=== PATIENT | female | born 1995 | race Caucasian/White ===

== ENCOUNTER 2017-08-09 20:12 | Emergency (ER) | payer OTHER ==
[2017-08-09] MEDS ORDERED: Ondansetron ODT TAB* 4 MG PO ONE (21:29)
--- NOTE | 2017-08-09 21:29 | ED ---
Head Injury - HPI Summary HPI Summary: 21 female presents with head injury today. She states she stood up and hit her head on a bar. She denies any loss consciousness. She denies any vomiting but admits to nausea. She admits to some dizziness. She denies any change in vision. States she took some Tylenol which normally takes for headaches but it did not relieve her headache. She has history of migraines. She does have a history of concussions. She states her pain is greatest on the posterior aspect of her head where she struck her head. She denies any neck pain. She denies any other injury. She denies any difficulties concentrating. She also states that she noticed a rash on her left forearm today. States area has been spreading. She denies any fevers. She denies any history of MRSA. She denies any injury to the area. She has full range of motion of her wrist. - History Of Current Complaint Chief Complaint: EDHeadInjury Stated Complaint: HEAD INJURY Time Seen by Provider: 08/09/17 20:26 Hx Last Menstrual Period: 12/20/14 Pain Intensity: 3 - Allergies/Home Medications Allergies/Adverse Reactions: Allergies Allergy/AdvReac Type Severity Reaction Status Date / Time No Known Allergies Allergy Verified 01/06/15 11:25 PMH/Surg Hx/FS Hx/Imm Hx Endocrine/Hematology History: Denies: Hx Diabetes, Hx Thyroid Disease Cardiovascular History: Denies: Hx Hypertension Respiratory History: Reports: Hx Asthma - ACTIVITY INDUCED Denies: Hx Chronic Obstructive Pulmonary Disease (COPD) GI History: Denies: Hx Ulcer Neurological History: Reports: Hx Migraine - Surgical History Surgery Procedure, Year, and Place: DOUBLE HERNIA- 2-3 YEARS OF AGE Infectious Disease History: No Infectious Disease History: Denies: Hx Hepatitis, Hx Human Immunodeficiency Virus (HIV), Traveled Outside the [place] in Last 30 Days - Family History Known Family History: Negative: Seizure Disorder - Social History Alcohol Use: Occasionally Substance Use Type: Reports: None Smoking Status (MU): Never Smoked Tobacco Review of Systems Negative: Fever Negative: Chest Pain Negative: Shortness Of Breath Positive: Nausea. Negative: Vomiting Positive: Rash Positive: Headache All Other Systems Reviewed And Are Negative: Yes Physical Exam Triage Information Reviewed: Yes Vital Signs On Initial Exam: Initial Vitals Temp Pulse Resp BP Pulse Ox 98.5 F 78 16 123/67 100 08/09/17 20:14 08/09/17 20:14 08/09/17 20:14 08/09/17 20:14 08/09/17 20:14 Vital Signs Reviewed: Yes Appearance: Positive: Well-Appearing Skin: Positive: Warm, Dry, Other - Erythematous rash 4cm by 3 cm of left forearm that is warm to touch Head/Face: Positive: Normal Head/Face Inspection. Negative: Other - No step off , raccoon eyes, cerna sign Eyes: Positive: Normal, EOMI, OSCAR, Conjunctiva Clear ENT: Positive: Normal ENT inspection, Pharynx normal, TMs normal Neck: Positive: Other: - Nontender neck Respiratory/Lung Sounds: Positive: Clear to Auscultation, Breath Sounds Present Cardiovascular: Positive: Normal, RRR Abdomen Description: Positive: Nontender, Soft Bowel Sounds: Positive: Present Musculoskeletal: Positive: Strength/ROM Intact - Left wrist, Other - good Pulses Neurological: Positive: Sensory/Motor Intact, Alert, Oriented to Person Place, Time, CN Intact II-III Psychiatric: Positive: Normal - Lebron Coma Scale Best Eye Response: 4 - Spontaneous Best Motor Response: 6 - Obeys Commands Best Verbal Response: 5 - Oriented Coma Scale Total: 15 Diagnostics - Vital Signs Vital Signs Temp Pulse Resp BP Pulse Ox 08/09/17 20:14 98.5 F 78 16 123/67 100 - Laboratory Lab Statement: Any lab studies that have been ordered have been reviewed, and results considered in the medical decision making process. Head Injury Course/Dx Course Of Treatment: 21 female presents with head injury today. She states she stood up and hit her head on a bar. She denies any loss consciousness. She denies any vomiting but admits to nausea. She admits to some dizziness. She denies any change in vision. States she took some Tylenol which normally takes for headaches but it did not relieve her headache. She has history of migraines. She does have a history of concussions. She states her pain is greatest on the posterior aspect of her head where she struck her head. She denies any neck pain. She denies any other injury. She denies any difficulties concentrating. She also states that she noticed a rash on her left forearm today. States area has been spreading. She denies any fevers. She denies any history of MRSA. She denies any injury to the area. She has full range of motion of her wrist. On exam normal neuro exam. According to [place] rules does not need any head imaging at this time. Warned if develop persistent vomiting to return to ED. Rash could be a cellulitis so advised that if continues to spread tomorrow to start antibiotics. Told to follow up with Michael about head injury. Gave nausea medication. Patient understands agrees with plan. - Diagnoses Differential Diagnosis/HQI/PQRI: Concussion Without LOC, Contusion, Intracranial Bleed Provider Diagnoses: Head injury, Rash Discharge - Sign-Out/Discharge Documenting (check all that apply): Discharge/Admit/Transfer - Discharge Plan Condition: Good Disposition: HOME Prescriptions: Cephalexin CAP* [Keflex CAP*] 500 mg PO BID #14 cap Ondansetron ODT TAB* [Zofran 4 MG Odt TAB*] 4 mg PO Q6H PRN #12 tab.odt PRN Reason: Nausea Patient Education Materials: Head Injury (ED) Referrals: [facility] - Michael BAILEY [Primary Care Provider] - Additional Instructions: Place ice on area as needed Take Tylenol or ibuprofen for headache every 6 hours take zofran every 6 hours as need for nausea Modify activities as tolerated Follow up with primary within 5 days if rash still present tomorrow start antibiotic twice a day for 7 days Return to ED if develop persistent vomiting, severe headache, change in behavior , or any new or worsening symptoms - Billing Disposition and Condition Condition: GOOD Disposition: HOME
[2017-08-09 21:58] VITALS: BP 119/73
== END 2017-08-09 21:54 | disposition home or self-care (01) ==
LOC: ED 20:12
DX: S09.90XA Unspecified injury of head, initial encounter (principal); R21 Rash and other nonspecific skin eruption; W22.8XXA Striking against or struck by other objects, initial encounter; Y92.9 Unspecified place or not applicable; R11.0 Nausea
CPT/HCPCS: 99282; A9270-GY

== ENCOUNTER 2019-06-23 19:12 | Emergency (ER) | payer OTHER ==
[2019-06-23 20:17] VITALS: BP 134/76
--- NOTE | 2019-06-23 21:08 | UC ---
Respiratory Complaint HPI - HPI Summary HPI Summary: 23 yo female with cough and sore throat x 2 days cough worse symptom feverish day first day of illness had influenza A a few weeks ago no cp or sob no n/v/d no travel - History of Current Complaint Chief Complaint: UCRespiratory Stated Complaint: COUGH Time Seen by Provider: 06/23/19 21:00 Hx Obtained From: Patient Hx Last Menstrual Period: Onset/Duration: Gradual Onset, Lasting Days Timing: Constant Severity Initially: Mild Severity Currently: Mild Pain Intensity: 3 Pain Scale Used: 0-10 Numeric Character: Cough: Nonproductive Aggravating Factors: Nothing Associated Signs And Symptoms: Positive: Fever - day one of illness - Allergies/Home Medications Allergies/Adverse Reactions: Allergies Allergy/AdvReac Type Severity Reaction Status Date / Time No Known Allergies Allergy Verified 06/23/19 20:17 Home Medications: Home Medications ARIPiprazole TAB* [Abilify TAB*] 5 mg PO DAILY 01/06/15 [History Confirmed ] Amphetamine/Dextroamph ER(NF) [Adderal XR (NF)] 20 mg PO DAILY 01/06/15 [ History Confirmed 06/23/19] FLUoxetine* 50 mg PO DAILY 01/06/15 [History Confirmed 06/23/19] Amoxicillin PO (*) [Amoxicillin 875 MG (*)] 875 mg PO BID #14 tab 06/23/19 [Rx] Levalbuterol HFA INHALER* [Xopenex Hfa Inhaler*] 1 - 2 puff INH QID #1 mdi 06/22 [Rx] Uid 1 each IU ONCE 06/23/19 [History Confirmed 06/23/19] predniSONE 20 mg TAB [Deltasone 20 MG TAB*] 40 mg PO DAILY #8 tab 06/23/19 [Rx] PMH/Surg Hx/FS Hx/Imm Hx Previously Healthy: Yes - Surgical History Surgical History: Yes Surgery Procedure, Year, and Place: DOUBLE HERNIA- 2-3 YEARS OF AGE - Family History Known Family History: Negative: Seizure Disorder - Social History Alcohol Use: Weekly Substance Use Type: None Smoking Status (MU): Never Smoked Tobacco Review of Systems All Other Systems Reviewed And Are Negative: Yes Constitutional: Positive: Fever Skin: Positive: Negative Eyes: Positive: Negative ENT: Positive: Sore Throat Respiratory: Positive: Cough Cardiovascular: Positive: Negative Gastrointestinal: Positive: Negative Genitourinary: Positive: Negative Motor: Positive: Negative Neurovascular: Positive: Negative Musculoskeletal: Positive: Myalgia Neurological/Mental Status: Positive: Negative Psychological: Positive: Negative Physical Exam Triage Information Reviewed: Yes Appearance: Well-Appearing, No Pain Distress, Well-Nourished Vital Signs: Initial Vital Signs Temp 99.0 F 06/23/19 20:12 Pulse 89 06/23/19 20:12 Resp 16 06/23/19 20:12 BP 134/76 06/23/19 20:12 Pulse Ox 97 06/23/19 20:12 Vital Signs Reviewed: Yes Eyes: Positive: Conjunctiva Clear ENT: Positive: Hearing grossly normal. Negative: Nasal congestion, Nasal drainage, Muffled voice, Hoarse voice Dental Exam: Normal Neck: Positive: Supple, Nontender, No Lymphadenopathy Respiratory: Positive: Normal breath sounds, No respiratory distress, Wheezing - with forced expiration Cardiovascular: Positive: RRR, No Murmur Musculoskeletal: Positive: ROM Intact, No Edema Neurological: Positive: Alert Psychological Exam: Normal Skin Exam: Normal Diagnostics - Laboratory Lab Results: strep (-) influenza (-) - Radiology No standard instances Radiology Interpretation Completed By: ED Physician Summary of Radiographic Findings: airtrapping vs marked insp effort Respiratory Course/Dx - Differential Dx/Diagnosis Provider Diagnosis: Acute bronchitis Discharge ED - Sign-Out/Discharge Documenting (check all that apply): Patient Departure All imaging exams completed and their final reports reviewed: No - Discharge Plan Condition: Stable Disposition: HOME Patient Education Materials: Acute Bronchitis (ED) Referrals: No Primary Care Phys,NOPCP [Primary Care Provider] - - Billing Disposition and Condition Condition: STABLE Disposition: Home
[2019-06-23 21:31] LABS: Influenza A Molecular Negative (Negative); Influenza B Molecular Negative (Negative)
[2019-06-23] MEDS ORDERED: Amoxicillin PO (*) 500 MG CAP PO ONE (22:00)
--- NOTE | 2019-06-24 15:43 | UC ---
- Progress Note Progress Note: XR wet read correct Course/Dx - Diagnoses Provider Diagnoses: Acute bronchitis Discharge ED - Sign-Out/Discharge Documenting (check all that apply): Post-Discharge Follow Up All imaging exams completed and their final reports reviewed: Yes - Discharge Plan Condition: Stable Disposition: HOME Prescriptions: Amoxicillin PO (*) [Amoxicillin 875 MG (*)] 875 mg PO BID #14 tab Levalbuterol HFA INHALER* [Xopenex Hfa Inhaler*] 1 - 2 puff INH QID #1 mdi predniSONE 20 mg TAB [Deltasone 20 MG TAB*] 40 mg PO DAILY #8 tab Patient Education Materials: Acute Bronchitis (ED) Forms: *Work Release Referrals: No Primary Care Phys,NOPCP [Primary Care Provider] - Additional Instructions: rest fluids tylenol or advil recheck in 4-5 days if still febrile recheck sooner for worsening symptoms - Billing Disposition and Condition Condition: STABLE Disposition: Home
== END 2019-06-23 22:20 | disposition home or self-care (01) ==
LOC: UCEAST 19:12
DX: J20.9 Acute bronchitis, unspecified (principal); J02.9 Acute pharyngitis, unspecified
CPT/HCPCS: 71046; 87651; 99212; A9270-GY; G0463; J7512

== ENCOUNTER 2019-06-28 10:22 | Emergency (ER) | payer OTHER ==
--- NOTE | 2019-06-28 12:24 | UC ---
Respiratory Complaint HPI - History of Current Complaint Stated Complaint: COUGH Time Seen by Provider: 06/28/19 12:24 Hx Last Menstrual Period: - Allergies/Home Medications Allergies/Adverse Reactions: Allergies Allergy/AdvReac Type Severity Reaction Status Date / Time No Known Allergies Allergy Verified 06/23/19 20:17 Home Medications: Home Medications ARIPiprazole TAB* [Abilify TAB*] 5 mg PO DAILY 01/06/15 [History Confirmed ] Amphetamine/Dextroamph ER(NF) [Adderal XR (NF)] 20 mg PO DAILY 01/06/15 [ History Confirmed 06/23/19] FLUoxetine* 50 mg PO DAILY 01/06/15 [History Confirmed 06/23/19] Amoxicillin PO (*) [Amoxicillin 875 MG (*)] 875 mg PO BID #14 tab 06/23/19 [Rx] Levalbuterol HFA INHALER* [Xopenex Hfa Inhaler*] 1 - 2 puff INH QID #1 mdi 06/22 [Rx] Uid 1 each IU ONCE 06/23/19 [History Confirmed 06/23/19] predniSONE 20 mg TAB [Deltasone 20 MG TAB*] 40 mg PO DAILY #8 tab 06/23/19 [Rx] PMH/Surg Hx/FS Hx/Imm Hx - Surgical History Surgical History: Yes Surgery Procedure, Year, and Place: DOUBLE HERNIA- 2-3 YEARS OF AGE - Family History Known Family History: Negative: Seizure Disorder - Social History Alcohol Use: Weekly Substance Use Type: None Smoking Status (MU): Never Smoked Tobacco Discharge ED - Discharge Plan Referrals: No Primary Care Phys,NOPCP [Primary Care Provider] -
--- NOTE | 2019-06-28 12:52 | UC ---
Respiratory Complaint HPI - HPI Summary HPI Summary: 23 yo female presents with cough. She tells me that she was seen on 06/22 and dx' d with bronchitis and placed on anbx and an albuterol inhaler. She is feeling much better overall, but still has an intermittent dry cough. Inhaler helps with dry cough. She has not been taking anything OTC for her symptoms. She denies fever, chills, sore throat, SOB, chest pain. No recent travel or known exposure to COVID. She is requesting COVID testing today - History of Current Complaint Stated Complaint: COUGH Time Seen by Provider: 06/28/19 12:24 Hx Obtained From: Patient Hx Last Menstrual Period: today Onset/Duration: Gradual Onset Severity Initially: Mild Severity Currently: Mild Pain Intensity: 2 Pain Scale Used: 0-10 Numeric - Allergies/Home Medications Allergies/Adverse Reactions: Allergies Allergy/AdvReac Type Severity Reaction Status Date / Time No Known Allergies Allergy Verified 06/23/19 20:17 Home Medications: Home Medications ARIPiprazole TAB* [Abilify TAB*] 5 mg PO DAILY 01/06/15 [History Confirmed ] Amphetamine/Dextroamph ER(NF) [Adderal XR (NF)] 20 mg PO DAILY 01/06/15 [ History Confirmed 06/23/19] FLUoxetine* 40 mg PO DAILY 01/06/15 [History Confirmed 06/23/19] Amoxicillin PO (*) [Amoxicillin 875 MG (*)] 875 mg PO BID #14 tab 06/23/19 [Rx] Levalbuterol HFA INHALER* [Xopenex Hfa Inhaler*] 1 - 2 puff INH QID #1 mdi 06/22 [Rx] Uid 1 each IU ONCE 06/23/19 [History Confirmed 06/23/19] PMH/Surg Hx/FS Hx/Imm Hx Psychological History: Anxiety, Depression - Surgical History Surgical History: Yes Surgery Procedure, Year, and Place: DOUBLE HERNIA- 2-3 YEARS OF AGE - Family History Known Family History: Negative: Seizure Disorder - Social History Lives: With Family Alcohol Use: Weekly Substance Use Type: None Smoking Status (MU): Never Smoked Tobacco Review of Systems All Other Systems Reviewed And Are Negative: No Constitutional: Positive: Negative Skin: Positive: Negative Eyes: Positive: Negative ENT: Positive: Negative Respiratory: Positive: Cough Cardiovascular: Positive: Negative Gastrointestinal: Positive: Negative Neurological/Mental Status: Positive: Negative Psychological: Positive: Negative Physical Exam - Summary Physical Exam Summary: GENERAL: NAD. WDWN. No pain distress. SKIN: No rashes, sores, lesions, or open wounds. HEENT: Head: AT/NC Eyes: EOM intact. Conjunctiva clear without inflammation or discharge. Ears: Hearing grossly normal. TMs intact, no bulging, erythema, or edema. Nose: Nasal mucosa pink and moist. NTTP maxillary and frontal sinus. Throat: Posterior oropharynx without exudates, erythema, or tonsillar enlargement. Uvula midline. NECK: Supple. Nontender. No lymphadenopathy. CHEST: CTAB. No r/r/w. No accessory muscle use. Breathing comfortably and in no distress. CV: RRR. Pulses intact. Cap refill <2seconds NEURO: Alert. PSYCH: Anxious appearing. Triage Information Reviewed: Yes Vital Signs: Vital Signs: Temp Pulse Resp BP Pulse Ox 98.7 F 105 18 119/77 98 06/28/19 13:14 06/28/19 13:14 06/28/19 13:14 06/28/19 13:14 06/28/19 13:14 Vital Signs Reviewed: Yes Respiratory Course/Dx - Course Course Of Treatment: EXAM WNL and she is overall feeling better compared to last visit. Does not meet COVID testing criteria. Suspect lingering cough from recent bronchitis. Advised to continue albuterol inhaler as directed. Offered tessalon, but pt declined. - Differential Dx/Diagnosis Provider Diagnosis: Cough Discharge ED - Sign-Out/Discharge Documenting (check all that apply): Patient Departure All imaging exams completed and their final reports reviewed: No Studies - Discharge Plan Condition: Stable Disposition: HOME Patient Education Materials: Acute Bronchitis (ED) Referrals: No Primary Care Phys,NOPCP [Primary Care Provider] - Additional Instructions: You do not meet criteria for COVID testing. Your symptoms are likely from a viral infection. Viral infections do not respond to antibiotics and are limited to the treatment of symptoms. Viral infections typically run their course in 7-10 days. Drink plenty of fluids, especially if you are running any fever. Use salt water gargles several times a day. Take over the counter acetaminophen (Tylenol) or ibuprofen (Advil, Motrin) according to directions as needed for pain or fever. You may also use Chloraseptic spray or Cepacol lonzenges according to directions which contain a numbing medication and can provide some temporary relief from a sore throat. Return here or follow up with your primary care provider in 7 days if symptoms persist. - Billing Disposition and Condition Condition: STABLE Disposition: Home - Attestation Statements Provider Attestation: This patient was not seen by me I was available for consult Chart reviewed ALVARO
[2019-06-28 13:15] VITALS: BP 119/77
== END 2019-06-28 13:20 | disposition home or self-care (01) ==
LOC: UCEAST 10:22
DX: R05 Cough (principal)
CPT/HCPCS: 99211; G0463